=== PATIENT | male | born 1945 | race Caucasian/White ===

== ENCOUNTER → 2024-12-28 | Outpatient (CLI) | payer OTHER ==
[2024-12-28 11:00] LABS: ALBUMIN(ML) 3.8 g/dL (3.4-5.0); ANION GAP 14.3; BUN/CREATININE RATIO 8.13 (10.0-20.0); CARBON DIOXIDE 27.5 mmol/L (20.0-32); CREATININE SERUM 1.23 mg/dL (0.59-1.40); EST GFR, NON-AA 56.5 (>/=60); POTASSIUM 4.8 mmol/L (3.6-5.2)
== END | disposition home or self-care (01) ==
LOC: LAB 10:27
PROVIDERS: ATTEND Nurse Practitioner Family
DX: I11.0 Hypertensive heart disease with heart failure (principal); E11.43 Type 2 diabetes mellitus with diabetic autonomic (poly)neuropathy
CPT/HCPCS: 36415; 80053; 83036